=== PATIENT | female | born 1955 | race Caucasian/White ===

== ENCOUNTER 2017-10-28 15:56 | Emergency (ER) | payer MEDICAID ==
[2017-10-28 16:03] VITALS: RESP 20
[2017-10-28] MEDS ORDERED: Tdap Vaccine 0.5 ml Vial (10-64 yrs) IM ONE (16:24)
--- NOTE | 2017-10-28 16:27 | C.PDOC ---
History Of Present Illness 61 y/o female sent to ED by pmd for tetanus booster. pt scratched the lateral side of right calf yesterday on some sharp metallic edge. last tdap more than 5 yrs ago. pt c/o mild pain to scratched area. no fever. Time Seen by Provider: 10/28/17 16:16 Chief Complaint (Nursing): Lower Extremity Problem/Injury History Per: Patient History/Exam Limitations: no limitations Onset/Duration Of Symptoms: Days (1) Current Symptoms Are (Timing): Still Present Severity: Mild Past Medical History Vital Signs: Last Vital Signs Temp 98 F 10/28/17 16:38 Pulse 64 10/28/17 16:38 Resp 20 10/28/17 16:38 BP 144/65 10/28/17 16:38 Pulse Ox 98 10/28/17 22:15 - Medical History PMH: Anxiety, Asthma, Bipolar Disorder, HTN, Hypothyroidism Denies: Diabetes, Hepatitis, HIV, Seizures, Sexually Transmitted Disease - [facility] Procedures INCIS W REM OF FORIEGN BODY OR DEV FROM SKIN & SUBCUT TISSUE (11/21/12) SKIN & SUBQ INCISION NEC (12/05/98) Family History: States: Unknown Family Hx - Social History Hx Tobacco Use: Yes Hx Alcohol Use: No Hx Substance Use: No - Immunization History Hx Tetanus Toxoid Vaccination: No (more than 5 yrs ago) Hx Influenza Vaccination: No Hx Pneumococcal Vaccination: No Review Of Systems Constitutional: Negative for: Fever, Chills Skin: Positive for: Other (scratches right lateral calf). Negative for: Rash Neurological: Negative for: Weakness, Incoordination Physical Exam - Physical Exam Appears: Non-toxic, No Acute Distress Skin: Warm, Dry Head: Atraumatic, Normacephalic Extremity: Other (rle with from, several scratches with scabs to right lateral calf, no erythema, warmth or swelling. ) Pulses: Right Dorsalis Pedis: Normal Neurological/Psych: Oriented x3, Normal Speech, Normal Cognition ED Course And Treatment O2 Sat by Pulse Oximetry: 98 Medical Decision Making Medical Decision Making: pt with scratches to leg by brandil needs tdap booster. Disposition Counseled Patient/Family Regarding: Diagnosis, Need For Followup - Disposition Referrals: Sidney Bone MD [Staff Provider] - Disposition: HOME/ ROUTINE Disposition Time: 16:37 Condition: GOOD Additional Instructions: Please take Tylenol of needed for pain. Follow up with Dr Bone if needed. Watch area with scratches (healing) for any sign of infection such as redness, swelling or drainage; if so, then return to ER.. Instructions: Skin Abrasions (DC) Forms: [facility] (Sudanese), General Discharge Instructions - Clinical Impression Clinical Impression: Excoriation of right lower leg, Vaccine for [id number], combined
[2017-10-28] MEDS ORDERED: Tetanus/Diphtheria Toxoids 0.5 ml Syringe IM ONE (16:29)
[2017-10-28 16:39] VITALS: BP 144/65; PULSE 64; TEMP 98; O2SAT 98
== END 2017-10-28 17:01 | disposition home or self-care (01) ==
LOC: C.ER 15:56
DX: Z23 Encounter for immunization (principal); S80.811A Abrasion, right lower leg, initial encounter; X58.XXXA Exposure to other specified factors, initial encounter

== ENCOUNTER 2018-05-31 12:32 | Day surgery (SDC) | payer MEDICAID | END 2018-05-31 20:00 | disposition home or self-care (01) | LOC: C.SDS 12:32 | DX: N30.10 Interstitial cystitis (chronic) without hematuria (principal) ==

== ENCOUNTER 2018-10-03 13:39 | Emergency (ER) | payer MEDICAID ==
[2018-10-03 14:18] VITALS: BP 150/84; PULSE 80; TEMP 98.2; O2SAT 98
--- NOTE | 2018-10-03 15:05 | C.PDOC ---
History Of Present Illness 62-year-old female presents to the emergency department With hyperglycemia prior to arrival. Patient reports a history of breast cancer, right breast metastatic to the left breast. Patient reports history of chemotherapy last week, but notes that she has been hyperglycemic ever since. Patient has a history of hypoglycemia but no history of diabetes. Patient states that she has been checking her glucose with the glucometer for the last week and has found her glucose levels to be between 180 and 232. Patient states it today she was at 209. Patient thought Dr. Pemberton worked at [facility] and was told that he works here at [employer], so she presented here to see him. Patient reports changing the battery in here glucometer this week. Time Seen by Provider: 10/03/18 13:46 Chief Complaint (Nursing): High Blood Sugar History Per: Patient History/Exam Limitations: no limitations Onset/Duration Of Symptoms: Other (1 week) Current Diabetic Medications: None Past Medical History Reviewed: Historical Data, Nursing Documentation, Vital Signs Vital Signs: Last Vital Signs Temp 98.2 F 10/03/18 14:00 Pulse 80 10/03/18 14:00 Resp 18 10/03/18 14:00 BP 150/84 10/03/18 14:00 Pulse Ox 98 10/03/18 14:00 Primary Care Provider: Chandan Pemberton - Medical History PMH: Anxiety, Asthma, Bipolar Disorder, HTN, Hypothyroidism, Sexually Transmitted Disease (H/O GENITAL HERPES. TREATED W/VALTEX) Denies: Diabetes, Hepatitis, Chronic Kidney Disease Surgical History: No Surg Hx - [facility] Procedures INCIS W REM OF FORIEGN BODY OR DEV FROM SKIN & SUBCUT TISSUE (11/21/12) SKIN & SUBQ INCISION NEC (12/05/98) Family History: States: No Known Family Hx - Social History Hx Tobacco Use: Yes Hx Alcohol Use: No Hx Substance Use: No - Immunization History Hx Tetanus Toxoid Vaccination: No (more than 5 yrs ago) Hx Influenza Vaccination: No Hx Pneumococcal Vaccination: No Review Of Systems Constitutional: Negative for: Fever, Chills, Weakness Cardiovascular: Negative for: Chest Pain Respiratory: Negative for: Cough, Shortness of Breath Gastrointestinal: Negative for: Nausea, Vomiting, Abdominal Pain, Diarrhea Physical Exam - Physical Exam Appears: Non-toxic, No Acute Distress Skin: Normal Color, Warm, Dry Head: Atraumatic, Normacephalic Eye(s): bilateral: Normal Inspection, PERRL, EOMI Nose: Normal Oral Mucosa: Moist Neck: Normal, Supple Chest: Symmetrical, No Tenderness Cardiovascular: Rhythm Regular, No Murmur Respiratory: Normal Breath Sounds, No Rales, No Rhonchi, No Wheezing Gastrointestinal/Abdominal: Soft, No Tenderness, No Guarding, No Rebound Extremity: Normal ROM Neurological/Psych: Oriented x3, Normal Speech, Normal Cognition ED Course And Treatment O2 Sat by Pulse Oximetry: 98 (RA) Pulse Ox Interpretation: Normal Medical Decision Making Medical Decision Making: Plan: Glucose POC Disposition Counseled Patient/Family Regarding: Studies Performed, Diagnosis, Need For Followup - Disposition Referrals: Chandan Pemberton MD [Staff Provider] - Disposition: HOME/ ROUTINE Disposition Time: 15:36 Condition: STABLE Forms: [facility] (Australian), General Discharge Instructions - Clinical Impression Clinical Impression: Encounter for medical screening examination - Scribe Statement The provider has reviewed the documentation as recorded by the Scribe (Rigoberto Vail) Provider Attestation: All medical record entries made by the Scribe were at my direction and personally dictated by me. I have reviewed the chart and agree that the record accurately reflects my personal performance of the history, physical exam, medical decision making, and the department course for this patient. I have also personally directed, reviewed, and agree with the discharge instructions and disposition.
[2018-10-03 15:42] VITALS: RESP 20
== END 2018-10-03 15:41 | disposition home or self-care (01) ==
LOC: C.ER 13:39
DX: Z13.9 Encounter for screening, unspecified (principal); I10 Essential (primary) hypertension; E03.9 Hypothyroidism, unspecified; Z85.3 Personal history of malignant neoplasm of breast; Z72.0 Tobacco use; F31.9 Bipolar disorder, unspecified